=== PATIENT | male | born 1995 | race Caucasian/White ===

== ENCOUNTER 2021-06-02 02:56 | Emergency (ER) | payer MEDICAID ==
[~2021-06-02] VITALS: Ht 170.2 cm; Wt 73.9 kg
[2021-06-02 03:02] VITALS: BP 112/60
== END 2021-06-02 05:00 | disposition left against medical advice (07) ==
LOC: MED 02:56
DX: T24.002A Burn of unspecified degree of unspecified site of left lower limb, except ankle and foot, initial encounter (principal); Z53.21 Procedure and treatment not carried out due to patient leaving prior to being seen by health care provider; X12.XXXA Contact with other hot fluids, initial encounter; Y93.89 Activity, other specified; Y92.89 Other specified places as the place of occurrence of the external cause; Y99.8 Other external cause status

== ENCOUNTER 2021-06-06 00:22 | Emergency (ER) | payer MEDICAID ==
[~2021-06-06] VITALS: Ht 170.2 cm; Wt 72.6 kg
[2021-06-06 00:26] VITALS: BP 122/66
--- NOTE | 2021-06-06 00:29 | NUR ---
TO LOBBY A/W BED VIA W/C
[2021-06-06] MEDS ORDERED: SILVER SULFADIAZINE 1% 50 GM JAR TP ONE (00:45)
[2021-06-06] MEDS ORDERED: cefTRIAXone 1,000 MG in LIDOCAINE MPF 1% 2.1 ML IM ONE (00:45)
[2021-06-06] MEDS ORDERED: CEPH500C16 PO (00:48)
[2021-06-06] MEDS ORDERED: SILV-55 TP (00:48)
[2021-06-06] MEDS ORDERED: cefTRIAXone 1,000 MG VIAL ONE (01:04)
[2021-06-06] MEDS ORDERED: LIDOCAINE MPF 1% 5 ML ONE (01:05)
--- NOTE | 2021-06-06 01:05 | NUR ---
PT MOVED TO CHAIR C
[2021-06-06 02:00] VITALS: BP 122/66
== END 2021-06-06 01:28 | disposition home or self-care (01) ==
LOC: MED 00:22
DX: T25.211A Burn of second degree of right ankle, initial encounter (principal)
CPT/HCPCS: 16020; 90471; 90715; 96372; 99284; J0696; J2001

== ENCOUNTER 2021-07-03 12:55 | Emergency (ER) | payer MEDICAID ==
[~2021-07-03] VITALS: Ht 170.2 cm; Wt 81.6 kg
[~2021-07-03 12:55] MED LIST: CEPH500C16 PO; SILV-55 TP
[2021-07-03 13:03] VITALS: BP 123/86
[2021-07-03] MEDS ORDERED: IBUP-2213 PO (15:17)
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
[2021-07-03] MEDS: KETOROLAC 30 MG/ML VIAL IM ONE (15:42)
[2021-07-03 15:43] VITALS: BP 125/77
== END 2021-07-03 15:43 | disposition home or self-care (01) ==
LOC: MED 12:55
DX: S87.81XA Crushing injury of right lower leg, initial encounter (principal); Z79.899 Other long term (current) drug therapy; W23.0XXA Caught, crushed, jammed, or pinched between moving objects, initial encounter; Y93.89 Activity, other specified; Y92.89 Other specified places as the place of occurrence of the external cause; Y99.8 Other external cause status
CPT/HCPCS: 29505; 73552; 73562; 96372; 99284; J1885